=== PATIENT | female | born 1970 | race Caucasian/White ===

== ENCOUNTER 2021-10-14 01:40 | Day surgery (SDC) | payer OTHER, SELFPAY ==
[2021-10-04 10:47] VITALS: BMI 23.8
--- NOTE | 2021-10-13 16:02 | WPDANESEPP ---
Anes - Eval Pre Procedure Procedure: Operation Date: 10/14/21 08:30 Proposed Procedures p Screening Colonoscopy - Ronak Guerin MD Date/Time: 10/13/21 16:02 Pre Op Diagnosis: Neoplasm Screening Patient Data Age: 51 Gender: F Height: 1.75 m Weight: 73 kg Allergies Allergy/AdvReac Type Severity Reaction Status Date / Time Penicillins Allergy Unknown ITCHING Verified 12/28/10 07:27 Home Medications Medication Instructions Recorded Confirmed Type empagliflozin [Jardiance] 10 mg PO DAILY 10/04/21 10/04/21 History gabapentin 300 mg PO BID 10/04/21 10/04/21 History metformin 1,000 mg PO BID 10/04/21 10/04/21 History simvastatin 20 mg PO DAILY 10/04/21 10/04/21 History venlafaxine [Effexor XR] 37.5 mg PO DAILY 10/04/21 10/04/21 History Patient hx anesthesia problems: none Family hx anesthesia problems: none Results Review: All pre-operative results and documents have been reviewed as part of the pre-operative evaluation. [facility] Past Medical History Medical History (Updated 10/13/21 @ 16:04 by Dafne Lai CRNA) Arthritis Depression Diabetes GERD (gastroesophageal reflux disease) Seizure after head injury Surgical History Surgical History (Updated 10/13/21 @ 16:05 by Dafne Lai CRNA) H/O mastectomy H/O oophorectomy Hx of breast augmentation Family History Family History (Updated 04/07/16 @ 23:21 by DOCTOR UNKNOWN) Sibling Patient's sister is in good health Patient's brother is in good health Mother Family history of type 2 diabetes mellitus Social History Social History Smoking status: Never smoker Alcohol intake: current Drinks per week: 2 Substance use: never Substance use type: does not use Living arrangements: with family Spiritual care concerns: No Exam Day of Procedure 10/13/21 16:02
[2021-10-14 08:05] VITALS: BP 115/66; PULSE 101; RESP 18; TEMP 36.1; O2SAT 100
--- NOTE | 2021-10-14 08:13 | WPDANESEFPP ---
Anes - Eval Final PreProcedure Day of Procedure 10/14/21 08:13 Patient weight: normal Heart: regular rate and rhythm Lungs: clear to auscultation Airway: Mallampati scale class II Neurological: alert and oriented Last oral intake: >/= 8 hours ASA classification: II Emergent: no Anesthetic plan: proceed Anesthesia type and monitoring: general GIVS and standard monitoring Results Review: All pre-operative results and documents have been reviewed as part of the pre-operative evaluation. Informed Consent: The patient's anesthetic plan and its attendant risks and benefits were discussed with the patient/family/POA. Questions were solicited and answers provided to the satisfaction of the patient/family/POA.
[2021-10-14] MEDS: LACTATED RINGERS 1,000 ML 150 ML IV CONT (08:21)
[2021-10-14 08:22] LABS: Glucose Point of Care 105 mg/dl (65-105)
--- NOTE | 2021-10-14 08:44 | WPDGICN ---
Assessment and Plan Assessment and plan (1) Encounter for screening colonoscopy: Code(s): Z12.11 - Encounter for screening for malignant neoplasm of colon Status: Acute Assessment and Plan: Patient presents for screening colonoscopy. Appears to be at average risk for colon polyps. GI Consult Note Consult date/time: 10/14/21 08:44 HPI: Mariia Chan is a 51 year old female Presents for screening colonoscopy. Patient's current weight appetite bowel movements are normal. She denies abdominal pain. She has had no bleeding. Family history is noncontributory. Review of Systems Review of Systems: All systems reviewed & are unremarkable except as noted in HPI and below PMFSH Past Medical History Medical History (Updated 10/14/21 @ 08:45 by Ronak Guerin MD) Arthritis Depression Diabetes GERD (gastroesophageal reflux disease) Seizure after head injury Surgical History Surgical History (Updated 10/13/21 @ 16:05 by Dafne Lai CRNA) H/O mastectomy H/O oophorectomy Hx of breast augmentation Family History Family History (Updated 04/07/16 @ 23:21 by DOCTOR UNKNOWN) Sibling Patient's sister is in good health Patient's brother is in good health Mother Family history of type 2 diabetes mellitus Social History Social History Smoking status: Never smoker Alcohol intake: current Drinks per week: 2 Substance use: never Substance use type: does not use Living arrangements: with family Spiritual care concerns: No Meds Home Medications and Allergies Home Medications Medication Instructions Recorded Confirmed Type empagliflozin [Jardiance] 10 mg PO DAILY 10/04/21 10/04/21 History gabapentin 300 mg PO BID 10/04/21 10/04/21 History metformin 1,000 mg PO BID 10/04/21 10/04/21 History simvastatin 20 mg PO DAILY 10/04/21 10/04/21 History venlafaxine [Effexor XR] 37.5 mg PO DAILY 10/04/21 10/04/21 History Allergies Allergy/AdvReac Type Severity Reaction Status Date / Time Penicillins Allergy Unknown ITCHING Verified 10/14/21 08:04 Vital Signs Vital Signs - 24 hr 10/14/21 08:05 Temperature 97 F L Pulse Rate 101 H Respiratory Rate 18 Blood Pressure 115/66 Pulse Oximetry 100 Exam Narrative: Physical exam reveals patient be alert. Vital signs stable. HEENT exam is unremarkable. Patient is anicteric. Lungs are clear to auscultation and to percussion. Heart is without murmur or extra sounds. Abdominal exam bowel sounds are present soft nontender with no hepatosplenomegaly. Digital external rectal exam is normal.
[2021-10-14 09:07] VITALS: BP 98/58; PULSE 80; RESP 18; O2SAT 99
[2021-10-14 09:17] VITALS: BP 109/71; PULSE 69; RESP 14; O2SAT 100
[2021-10-14 09:26] VITALS: BP 115/75; PULSE 74; RESP 15; O2SAT 100
== END 2021-10-14 09:30 | disposition home or self-care (01) ==
PROVIDERS: PCP Family Medicine; Visit Provider Internal Medicine Gastroenterology
PROC: 0DJD8ZZ Inspection of Lower Intestinal Tract, Via Natural or Artificial Opening Endoscopic (ICD-10-PCS; CPT 45378; principal; 2021-10-14 08:30)
DX: Z12.11 Encounter for screening for malignant neoplasm of colon (principal); K64.8 Other hemorrhoids; E11.9 Type 2 diabetes mellitus without complications; K21.9 Gastro-esophageal reflux disease without esophagitis; F32.9 Major depressive disorder, single episode, unspecified; Z79.84 Long term (current) use of oral hypoglycemic drugs
CPT/HCPCS: 45378; 82948; J2001; J2704; J7120

== ENCOUNTER → 2022-07-05 11:30 | Outpatient (CLI) | payer OTHER, SELFPAY ==
--- NOTE | ~2022-07-05 | XR_ITS ---
XR ankle LT min 3V DATE: 07/05/2022 11:40 INDICATION: Anterior left ankle pain for 2 months. No injury. TECHNIQUE: 4 views COMPARISON: None FINDINGS: Slight plantar calcaneal enthesopathy. No fracture or dislocation of the ankle or disruption of the ankle mortise. No periosteal reaction or bone destruction. IMPRESSION: Slight plantar calcaneal enthesopathy; negative left ankle Reviewed, dictated and finalized at location A.
== END ==
PROVIDERS: PCP Family Medicine; Visit Provider Physician Assistant
DX: M25.572 Pain in left ankle and joints of left foot (principal)
CPT/HCPCS: 73610

== ENCOUNTER → 2023-08-27 14:18 | Outpatient (CLI) | payer OTHER, SELFPAY ==
--- NOTE | ~2023-08-27 | XR_ITS ---
XR hip LT min 2V 08/27/2023 14:46 Indication: Left hip pain Procedure: 2 views left hip Comparison: No prior studies for comparison. Findings: There is mild osteoarthritis of the left hip. No fracture or traumatic malalignment. No sof t tissue abnormality. No foreign bodies. Impression: 1: Mild osteoarthritis of the left hip. Reviewed, dictated and finalized at location A. ITURE SHAMPOOER Impression: 1: Mild osteoarthritis of the left hip.
== END ==
PROVIDERS: PCP Physician Assistant; Visit Provider Physician Assistant
DX: M16.12 Unilateral primary osteoarthritis, left hip (principal)
CPT/HCPCS: 73502